=== PATIENT | male | born 1990 | race Caucasian/White ===

== ENCOUNTER 2017-02-02 00:07 | Emergency (ER) | payer MEDICAID ==
[2017-02-02 00:07] VITALS: BMI 25.8
[2017-02-02 00:15] VITALS: RESP 18; TEMP 98.3
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
[2017-02-02] MEDS ORDERED: TDAP Vaccine 0.5 mL Syr IM ONE (01:06)
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
[2017-02-02 06:13] VITALS: BP 125/81; PULSE 81; O2SAT 97
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
== END 2017-02-02 06:21 | disposition home or self-care (01) ==
LOC: ED 00:07
DX: S01.81XA Laceration without foreign body of other part of head, initial encounter (principal); Y08.89XA Assault by other specified means, initial encounter; Y93.89 Activity, other specified; Y92.89 Other specified places as the place of occurrence of the external cause; Z23 Encounter for immunization
CPT/HCPCS: 12014; 70450; 70486; 71010; 72082; 72125; 90471; 90715; 96372; 99284; J1885